=== PATIENT | female | born 1965 | race Two or more races ===

== ENCOUNTER 2018-03-18 13:42 | Outpatient (CLI) | payer OTHER | END 2018-03-18 14:22 | disposition home or self-care (01) | LOC: RAD 501 13:42 | DX: M25.551 Pain in right hip (principal); M54.5 Low back pain ==

== ENCOUNTER 2018-05-04 13:30 | Inpatient (IN) | payer OTHER ==
[2018-05-07] MEDS ORDERED: COLACE100 MG PO (09:00)
[2018-05-07] MEDS ORDERED: DICLOFENAC POTA50 MG PO (09:00)
[2018-05-07] MEDS ORDERED: ULTRACET PO (09:00)
== END 2018-05-07 13:48 | disposition home or self-care (01) | DRG 742 ==
LOC: O/R 05-06 07:15 → SURH 05-06 12:15 → SURG 05-06 23:29
PROVIDERS: Obstetrics & Gynecology Gynecologic Oncology; Surgery
PROC: 0UT54ZZ Resection of Right Fallopian Tube, Percutaneous Endoscopic Approach (ICD-10-PCS; 2018-05-06)
PROC: 0WUF4JZ Supplement Abdominal Wall with Synthetic Substitute, Percutaneous Endoscopic Approach (ICD-10-PCS; 2018-05-06)
PROC: 0UT94ZZ Resection of Uterus, Percutaneous Endoscopic Approach (ICD-10-PCS; principal; 2018-05-06 12:15)
PROC: 0UT04ZZ Resection of Right Ovary, Percutaneous Endoscopic Approach (ICD-10-PCS; 2018-05-06 12:15)
DX: D25.1 Intramural leiomyoma of uterus (principal); K42.0 Umbilical hernia with obstruction, without gangrene; D25.2 Subserosal leiomyoma of uterus; D27.0 Benign neoplasm of right ovary